=== PATIENT | male | born 1985 | race Caucasian/White ===

== ENCOUNTER 2024-11-18 23:41 | Inpatient (IN) | payer MEDICAID, SELFPAY ==
[2024-11-18 23:48] VITALS: BP 135/74; PULSE 76; RESP 19; TEMP 36.9; O2SAT 96; BMI 20.2
--- NOTE | 2024-11-19 00:32 | ECG_ITS ---
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 Measurements Intervals [place] Rate: 77 P: 79 NV: 189 QRS: 59 QRSD: 116 T: 75 QT: 423 QTc: 479 Interpretive Statements SINUS RHYTHM WITH SINUS ARRHYTHMIA POSSIBLE LEFT ATRIAL ENLARGEMENT [-0.1mV P-WAVE IN V1/V2] INCOMPLETE RIGHT BUNDLE BRANCH BLOCK [90+ ms QRS DURATION, TERMINAL R IN V1/V2, 40+ ms S IN I/aVL/V4/V5/V6] MODERATE ST DEPRESSION [0.05+ mV ST DEPRESSION] No previous ECG available for comparison Electronically Signed On 11-19-2024 17:45:06 CDT by David Peoples M.D. [email or web address] [id number]
[2024-11-19 00:36] LABS: Hematocrit 43.0 % (37-53); Hemoglobin 14.20 g/dL (11.27-16.99); Mean Corpuscular HGB Conc 33.0 g/dL (30-55); Mean Corpuscular Hemoglobin 31.1 pg (27-33); Mean Corpuscular Volume 94.3 fl (82-101); Nucleated Red Blood Cells % 0 %; Platelet Count 220 10^3/cmm (157-399); Red Blood Count 4.56 10^6/uL (3.85-5.65); White Blood Count 7.96 10^3/uL (3.29-11.43)
[2024-11-19 00:45] LABS: Glucose Urine UA Negative (Normal); Nitrate Urine Negative (Negative)
[2024-11-19 00:50] LABS: Add Urine Microscopic? YES
[2024-11-19 00:52] LABS: PCP Screen Urine Negative (Negative); Specific Gravity, Urine 1.031 (1.005-1.030)
--- NOTE | 2024-11-19 00:59 | ED.C_ITS ---
Documented by User: ABRIL Dorado 11/19/24 01:08 HPI - Psych 2 General: Chief Complaint: Psychiatric Symptoms Stated Complaint: MHE Time Seen by Provider: 11/18/24 23:51 History of Present Illness: 39-year-old gentleman with intellectual disability, previously guardianship with his mother that has dementia in [place], moved here in July and his brother now has power of bankruptcy attorney/conservatorship over him that he resides with, presented to the emergency room due to watching child porn. Brother has 4 small children in the home, and apparently he was watching excessive child porn. Police brought patient to the ED and believes that he need to be placed on 96- hour hold due to his issues. Patient admits to depression, denies SI, denies HI. Patient admits that he is watching child porn he does not know why. He wants help to stop. Associated symptoms: Reports depression; Deny auditory hallucinations, homicidal ideation or suicidal ideation Review of Systems 2 General: Reports: 10 or more systems reviewed and unremarkable except in HPI and below Const: Denies: fever(s) or chills Eyes: Denies: change in vision or blurry vision ENMT: Denies: throat pain Card: Denies: chest pain or palpitations Resp: Denies: dyspnea or productive cough GI: Denies: abdominal pain, nausea or vomiting : Denies: flank pain or difficulty urinating Musc: Denies: neck pain or back pain Skin/Breast: Denies: rash or pruritus Neuro: Denies: headache(s) or numbness in extremities Psych: Reports: anxiety, depression and other (Watching child born); Denies: mood swings, panic attacks, sleeping less, sleeping more, loss of interest, paranoia, difficulty concentrating, auditory hallucinations, suicidal ideation or homicidal ideation Physical Exam 2 Const: COMMON NORMALS: patient oriented x3 HENMT: COMMON NORMALS: normocephalic and atraumatic HEAD & SCALP: n ormocephalic and atraumatic Neck/C-Spine: COMMON NORMALS: full ROM and no lymphadenopathy Lymph: LYMPHATIC: no lymphadenopathy noted Chest: COMMONS NORMALS: normal inspection of the chest and normal palpation of entire chest wall Resp: COMMON NORMALS: normal respiratory effort and No retractions GI: COMMON NORMALS: Normal to inspection, nondistended, normoactive bowel sounds present, Soft to palpation and non-tender PALPATION: Yes Soft to palpation : COMMON NORMALS: Yes no CVA tenderness BLADDER/KIDNEY EXAM: Yes no CVA tenderness Back/Pelvis: COMMON NORMALS: no CVA tenderness Extremity: COMMON NORMALS: normal to inspection, full ROM and capillary refill normal Neuro: COMMON NORMALS: patient oriented x3 and CN's II-XII intact bilaterally Psych: COMMON NORMALS: cooperative, normal affect, speech normal, denies hallucinations, denies homicidal ideation and denies suicidal ideation A PPEARANCE: Yes grossly normal ATTITUDE: Yes calm ACTIVITY/MOTOR BEHAVIOR: Yes appropriate eye contact SPEECH: Yes normal speech MOOD & AFFECT: Yes elevated mood THOUGHT PROCESS: Loose association thought process present T HOUGHT CONTENT: No Suicidality present, No Homicidality present and Yes Phobia(s) present (Child born) ATTENTION/CONCENTRATION: Yes attention grossly intact INSIGHT: Good insight present (Psych) JUDGEMENT: Good judgement present (Psych) Course 2 Vital Signs: Vital signs: Vital Signs Temperature 98.4 F 11/18/24 23:48 Pulse Rate 76 11/18/24 23:48 Respiratory Rate 19 H 11/18/24 23:48 Blood Pressure 135/74 11/18/24 23:48 Pulse Oximetry 96 11/18/24 23:48 Oxygen Delivery Me thod Room Air 11/18/24 23:48 MDM - Psych Medical Decision Making Patient is a 39-year-old male that moved here in July and his brother has power of bankruptcy attorney. He has chronic intellectual disabilities and requires care. He is residing with his brother and his nieces and nephews that are small children. He is also watching child porn. Brother called police and police brought him to the ER for admission. Patient states he needs help for his depression and wants to stop watching child porn, however denies suicide homicide ideations. He does not appear to have acute psychosis. 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 Will obtain workup and further discuss with psychiatric care. Lab Data 11/19/24 00:01 11/19/24 00:01 Laboratory Results WBC 7.96 10^3/uL (3.29-11.43) 11/19/24 00:01 RBC 4.56 10^6/uL (3.85-5.65) 11/19/24 00:01 Hgb 14.20 g/dL (11.27-16.99) 11/19/24 00:01 Hct 43.0 % (37-53) 11/19/24 00:01 MCV 94.3 fl (82-101) 11/19/24 00:01 MCH 31.1 pg (27-33) 11/19/24 00:01 MCHC 33.0 g/dL (30-55) 11/19/24 00:01 RDW 12.2 % (12.1-15.1) 11/19/24 00:01 Plt Count 220 10^3/cmm (157-399) 11/19/24 00:01 MPV 10.9 fL (7.4-10.4) H 11/19/24 00:01 Neut % (Auto) 81.9 % 11/19/24 00:01 Lymph % (Auto) 11.3 % 11/19/24 00:01 [place] % (Auto) 5.7 % 11/19/24 00:01 Eos % (Auto) 0.3 % 11/19/24 00:01 Baso % (Auto) 0.5 % 11/19/24 00:01 Neut # (Auto) 6.53 10^3/uL (1.8-7.7) 11/19/24 00:01 Lymph # (Auto) 0.9 10^3/uL (0.8-4.8) 11/19/24 00:01 [place] # (Auto) 0.5 10^3/uL (0.2-0.9) 11/19/24 00:01 Eos # (Auto) 0.0 10^3/uL (0.0-0.8) 11/19/24 00:01 Baso # (Auto) 0.0 10^3/uL (0.0-0.1) 11/19/24 00:01 Nucleated RBC % (auto) 0 % 11/19/24 00:01 Nucleated RBCs # 0.0 /100WBC 11/19/24 00:01 Sodium 139 mmol/L (136-145) 11/19/24 00:01 Potassium 3.6 mmol/L (3.5-5.1) 11/19/24 00:01 Chloride 99 mmol/L (98-107) 11/19/24 00:01 Carbon Dioxide 26 mmol/L (22-29) 11/19/24 00:01 Anion Gap 17.6 (5-19) 11/19/24 00: BUN 22 mg/dL (6-20) H 11/19/24 00:01 Creatinine 0.8 mg/dL (0.7-1.2) 11/19/24 00: GFR Calculation 106.5 mL/min (90-130) 11/19/24 00: Glucose 121 mg/dL (65-115) H 11/19/24 00: Calculated Osmolality 293 mOsm/kg (285-295) 11/19/24 00: Calcium 9.6 mg/dL (8.5-10.5) 11/19/24 00: Total Bilirubin 0.4 mg/dL (0.15-1.2) 11/19/24 00: AST 31 U/L (0-40) 11/19/24 00: ALT 19 U/L (0-41) 11/19/24 00: Alkaline Phosphatase 86 U/L (40-130) 11/19/24 00: Total Protein 8.2 g/dL (6.6-8.7) 11/19/24 00: Albumin 4.9 g/dL (3.5-5.2) 11/19/24 00: Globulin 3.3 g/dL (1.3-4.6) 11/19/24 00: TSH 1.72 uIU/mL (0.27-4.20) 11/19/24 00: Urine Color Yellow (Yellow) 11/19/24 00: Urine Appearance Clear (CLEAR) 11/19/24 00: Urine pH 6.0 (5-7) 11/19/24 00: Ur Specific [place] 1.031 (1.005-1.030) H 11/19/24 00: Urine Protein Trace (Negative) A 11/19/24 00: Urine Glucose (UA) Negative (Normal) 11/19/24 00: Urine Ketones 1+ (Negative) H 11/19/24 00: Urine Blood Negative (Negative) 11/19/24 00: Urine Nitrate Negative (Negative) 11/19/24 00: Urine Bilirubin Negative (Negative) 11/19/24 00:01 Urine Urobilinogen 1.0 mg/dL (Negative) 11/19/24 00:01 Ur Leukocyte Esterase Negative (Negative) 11/19/24 00:01 Urine RBC 0-2 /hpf (0-2) 11/19/24 00:01 Urine WBC 0-5 /hpf (0-5) 11/19/24 00:01 Ur Squamous Epith Cells 0-5 /hpf (0-5) 11/19/24 00:01 Amorphous Sediment Not Reportable 11/19/24 00:01 Urine Bacteria None seen /hpf (NONE) 11/19/24 00:01 Hyaline Casts 1.21 /lpf 11/19/24 00:01 Salicylates 0.5 mg/dL (3-10) L 11/19/24 00:01 Urine Opiates Screen Negative ng/mL (Negative) 11/19/24 00:01 Acetaminophen < 5.0 ug/mL (10-30) L 11/19/24 00:01 Ur Barbiturates Screen Negative ng/mL (Negative) 11/19/24 00:01 Ur Phencyclidine Scrn Negative ng/mL (Negative) 11/19/24 00:01 Ur Amphetamines Screen Negative ng/mL (Negative) 11/19/24 00:01 U Benzodiazepines Scrn Negative ng/mL (Negative) 11/19/24 00:01 Urine Cocaine Screen Negative ng/mL (Negative) 11/19/24 00:01 U Marijuana (THC) Screen Negative ng/mL (Negative) 11/19/24 00:01 Ethyl Alcohol < 10 mg/dL (0-10) 11/19/24 00:01 No radiology studies performed this visit Discharge Plan Discharge Patient Disposition: Admitted As Inpatient Clinical Impression: Inappropriate sexual behavior, Pedophilia Condition: Stable Discharge Diet: Usual diet Coding Level of Care Code ED Social Media Marketing Manager for Chg Fwd Documented by User: Laith Otto MD 11/19/24 01:50 HPI - Psych 2 General: Chief Complaint: Psychiatric Symptoms Stated Complaint: MHE Time Seen by Provider: 11/18/24 23:51 Course 2 Vital Signs: Vital signs: Vital Signs Temperature 98.4 F 11/18/24 23:48 Pulse Rate 76 11/18/24 23:48 Respiratory Rate 19 H 11/18/24 23:48 Blood Pressure 135/74 11/18/24 23:48 Pulse Oximetry 96 11/18/24 23:48 Oxygen Delivery Me thod Room Air 11/18/24 23:48 MDM - Psych Medical Decision Making Patient is a 39-year-old male that moved here in July and his brother has power of bankruptcy attorney. He has chronic intellectual disabilities and requires care. He is residing with his brother and his nieces and nephews that are small children. He is also watching child porn. Brother called police and police brought him to the ER for admission. Patient states he needs help for his depression and wants to stop watching child porn, however denies suicide homicide ideations. He does not appear to have acute psychosis. 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 Will obtain workup and further discuss with psychiatric care. 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 HPI: Mr. Edouard is a 39yo male with some degree of developmental delay and type 1 diabetes who was brought to the ED by law enforcement after his brother called the photoresist contact printer due to discovering inappropriate child-related content in the patient's internet search history. The patient admits to looking up inappropriate content involving children and expresses a desire to get that out of me. He reports living with his brother and [id number] who have children ages 13 and 11. The patient denies any physical contact with these children, stating I keep my hands to myself and off their bodies. He moved from [facility] to live with his brother in July after his mother developed fast dementia and could no longer care for him. The patient requires assistance with managing his insulin-dependent diabetes. The patient denies any current suicidal or homicidal ideation. He has never been admitted to a psychiatric hospital before, and this is his first psychiatric evaluation. He denies ever seeing a therapist for his pedophilic thoughts. The patient reports that his inappropriate viewing behavior began years and years ago in [facility]. He expresses a desire to address these thoughts through Muslim music and believes he can work through this and get this out of my head. A photoresist contact printer's deputy provided an affidavit stating the patient admitted to being attracted to both young girls and boys and wishes to get treatment. ROS: Constitutional: Denies suicidal or homicidal ideation. Psychiatric: Reports attention deficit hyperactivity disorder (ADHD). Denies previous psychiatric hospitalizations. Exhibits flat affect and possible developmental delay. MEDICATIONS AND ALLERGIES: Meds: NovoLog (fast-acting insulin), Tresiba (long-acting insulin) Allergies: No known allergies PAST HISTORICAL DATA: PMH: Type 1 diabetes (insulin-dependent), Attention Deficit Hyperactivity Disorder (ADHD) PSH: None reported Social: Previously lived in [facility] with his mother who has dementia. Recently moved to live with his brother and [id number] in July. Requires assistance with diabetes management. 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 Additional considerations include type 1 diabetes, ADHD, and possible autism spectrum disorder or schizoaffective disorder. Based on this initial impression, I will order laboratory studies to evaluate the patient's current metabolic status given his diabetes, consult psychiatry for evaluation and recommendations regarding the patient's pedophilic thoughts and possible developmental delay, and consider a 96-hour psychiatric hold based on the photoresist contact printer's recommendation and potential risk to minors. TEST INTERPRETATIONS: Labs: Unremarkable (specific values not provided in mechanical engineering technologist) CONSIDERED BUT NOT PERFORMED: Discharge to home CONSIDERED but NOT DONE due to patient's disclosure of pedophilic thoughts while living in a home with minor children, creating a potentially unsafe situation for both the patient and the children. 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 The patient requires psychiatric evaluation and treatment for his pedophilic thoughts and behaviors. The clinical picture is not currently suggestive of acute suicidal or homicidal ideation, psychosis, or diabetic emergency. Although other conditions were also considered, they were deemed unlikely based on the clinical information available. CLINICAL DISPOSITION: The patient's current condition is stable in my estimation and the most appropriate and indicated disposition at this time is admission to the inpatient psychiatric unit under Dr. Scott' care. The patient requires inpatient psychiatric admission due to his disclosure of pedophilic thoughts and behaviors while living in a home with minor children. He has expressed a desire for treatment but has never received professional help for these issues. Given the potential risk to minors and the patient's developmental delay affecting his ability to manage these impulses independently, inpatient evaluation and treatment initiation is warranted. The patient also requires monitoring of his insulin-dependent diabetes during psychiatric treatment. RISK STRATIFICATION AND CLINICAL DECISION RULES APPLIED: No formal clinical decision rules were applied in this case. Risk assessment was based on the patient's disclosure of pedophilic thoughts while living with minor children, his developmental delay affecting judgment, and the recommendation from law enforcement for a 96-hour psychiatric hold. CASE SUMMARY: Mr. Edouard is a male with type 1 diabetes and possible developmental delay who was brought to the ED by law enforcement after his brother discovered inappropriate child-related content in his internet search history. The patient admits to having pedophilic thoughts and desires treatment. He currently lives with his brother's family, which includes children ages 11 and 13. The patient denies any physical contact with these children but acknowledges his inappropriate thoughts. He has never received psychiatric treatment for these issues previously. Laboratory studies were unremarkable. After psychiatric consultation with Dr. Scott, the decision was made to admit the patient to the inpatient psychiatric unit for comprehensive evaluation and treatment initiation. This decision was based on the patient's disclosure of pedophilic thoughts while living with minor children, his developmental delay affecting judgment, and the recommendation from law enforcement for a 96-hour psychiatric hold. Lab Data I reviewed the patient's lab results. 11/19/24 00:01 11/19/24 00:01 Laboratory Results WBC 7.96 10^3/uL (3.29-11.43) 11/19/24 00:01 RBC 4.56 10^6/uL (3.85-5.65) 11/19/24 00:01 Hgb 14.20 g/dL (11.27-16.99) 11/19/24 00:01 Hct 43.0 % (37-53) 11/19/24 00:01 MCV 94.3 fl (82-101) 11/19/24 00:01 MCH 31.1 pg (27-33) 11/19/24 00:01 MCHC 33.0 g/dL (30-55) 11/19/24 00:01 RDW 12.2 % (12.1-15.1) 11/19/24 00:01 Plt Count 220 10^3/cmm (157-399) 11/19/24 00:01 MPV 10.9 fL (7.4-10.4) H 11/19/24 00:01 Neut % (Auto) 81.9 % 11/19/24 00:01 Lymph % (Auto) 11.3 % 11/19/24 00:01 [place] % (Auto) 5.7 % 11/19/24 00:01 Eos % (Auto) 0.3 % 11/19/24 00:01 Baso % (Auto) 0.5 % 11/19/24 00:01 Neut # (Auto) 6.53 10^3/uL (1.8-7.7) 11/19/24 00:01 Lymph # (Auto) 0.9 10^3/uL (0.8-4.8) 11/19/24 00:01 [place] # (Auto) 0.5 10^3/uL (0.2-0.9) 11/19/24 00:01 Eos # (Auto) 0.0 10^3/uL (0.0-0.8) 11/19/24 00:01 Baso # (Auto) 0.0 10^3/uL (0.0-0.1) 11/19/24 00:01 Nucleated RBC % (auto) 0 % 11/19/24 00:01 Nucleated RBCs # 0.0 /100WBC 11/19/24 00:01 Sodium 139 mmol/L (136-145) 11/19/24 00:01 Potassium 3.6 mmol/L (3.5-5.1) 11/19/24 00:01 Chloride 99 mmol/L (98-107) 11/19/24 00:01 Carbon Dioxide 26 mmol/L (22-29) 11/19/24 00:01 Anion Gap 17.6 (5-19) 11/19/24 00:01 BUN 22 mg/dL (6-20) H 11/19/24 00:01 Creatinine 0.8 mg/dL (0.7-1.2) 11/19/24 00:01 GFR Calculation 106.5 mL/min (90-130) 11/19/24 00: Glucose 121 mg/dL (65-115) H 11/19/24 00:01 Calculated Osmolality 293 mOsm/kg (285-295) 11/19/24 00: Calcium 9.6 mg/dL (8.5-10.5) 11/19/24 00: Total Bilirubin 0.4 mg/dL (0.15-1.2) 11/19/24 00: AST 31 U/L (0-40) 11/19/24 00: ALT 19 U/L (0-41) 11/19/24 00: Alkaline Phosphatase 86 U/L (40-130) 11/19/24 00: Total Protein 8.2 g/dL (6.6-8.7) 11/19/24 00: Albumin 4.9 g/dL (3.5-5.2) 11/19/24 00: Globulin 3.3 g/dL (1.3-4.6) 11/19/24 00: TSH 1.72 uIU/mL (0.27-4.20) 11/19/24 00: Urine Color Yellow (Yellow) 11/19/24 00: Urine Appearance Clear (CLEAR) 11/19/24 00: Urine pH 6.0 (5-7) 11/19/24 00: Ur Specific [place] 1.031 (1.005-1.030) H 11/19/24 00: Urine Protein Trace (Negative) A 11/19/24 00: Urine Glucose (UA) Negative (Normal) 11/19/24 00: Urine Ketones 1+ (Negative) H 11/19/24 00: Urine Blood Negative (Negative) 11/19/24 00: Urine Nitrate Negative (Negative) 11/19/24 00: Urine Bilirubin Negative (Negative) 11/19/24 00: Urine Urobilinogen 1.0 mg/dL (Negative) 11/19/24 00: Ur Leukocyte Esterase Negative (Negative) 11/19/24 00: Urine RBC 0-2 /hpf (0-2) 11/19/24 00: Urine WBC 0-5 /hpf (0-5) 11/19/24 00: Ur Squamous Epith Cells 0-5 /hpf (0-5) 11/19/24 00:01 Amorphous Sediment Not Reportable 11/19/24 00:01 Urine Bacteria None seen /hpf (NONE) 11/19/24 00:01 Hyaline Casts 1.21 /lpf 11/19/24 00:01 Salicylates 0.5 mg/dL (3-10) L 11/19/24 00:01 Urine Opiates Screen Negative ng/mL (Negative) 11/19/24 00:01 Acetaminophen < 5.0 ug/mL (10-30) L 11/19/24 00:01 Ur Barbiturates Screen Negative ng/mL (Negative) 11/19/24 00:01 Ur Phencyclidine Scrn Negative ng/mL (Negative) 11/19/24 00:01 Ur Amphetamines Screen Negative ng/mL (Negative) 11/19/24 00:01 U Benzodiazepines Scrn Negative ng/mL (Negative) 11/19/24 00:01 Urine Cocaine Screen Negative ng/mL (Negative) 11/19/24 00:01 U Marijuana (THC) Screen Negative ng/mL (Negative) 11/19/24 00:01 Ethyl Alcohol < 10 mg/dL (0-10) 11/19/24 00:01 No radiology studies performed this visit Discharge Plan Discharge Patient Disposition: Admitted As Inpatient Clinical Impression: Inappropriate sexual behavior, Pedophilia Condition: Stable Discharge Diet: Usual diet Coding Level of Care Code ED Social Media Marketing Manager for Adi Trammell
[2024-11-19 01:00] LABS: Alanine Aminotransferase 19 U/L (0-41); Albumin Level 4.9 g/dL (3.5-5.2); Alkaline Phosphatase 86 U/L (40-130); Anion Gap 17.6 (5-19); Aspartate Amino Transferase 31 U/L (0-40); Blood Urea Nitrogen 22 mg/dL (6-20); Calcium 9.6 mg/dL (8.5-10.5); Carbon Dioxide 26 mmol/L (22-29); Chloride 99 mmol/L (98-107); Creatinine Clr Calc Pharmacy 126.4897; Globulin 3.3 g/dL (1.3-4.6); Glucose 121 mg/dL (65-115); Osmolality Calculated 293 mOsm/kg (285-295); Potassium 3.6 mmol/L (3.5-5.1); Salicylate 0.5 mg/dL (3-10); Sodium 139 mmol/L (136-145); Thyroid Stimulating Hormone 1.72 uIU/mL (0.27-4.20); Total Protein 8.2 g/dL (6.6-8.7)
[2024-11-19 01:05] LABS: Acetaminophen < 5.0 ug/mL (10-30); Alcohol Level < 10 mg/dL (0-10)
[2024-11-19 02:45] VITALS: BP 129/78; PULSE 71; RESP 20; TEMP 36.6; O2SAT 100
[2024-11-19 06:00] VITALS: BP 111/66; PULSE 74; RESP 16; TEMP 36.6; O2SAT 97
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
--- NOTE | 2024-11-19 07:42 | PC.NURSE ---
Pt has a morning bs of 254. I spoke with his guardian and his , they state that pt takes 18u of Triseba every morning and 1u of Novolog for every 50 points over a bs of [address]. [address] Scott and let him know that our facility doesn't carry Triseba and that no insulin sliding scale orders are in place right now. Dr. Scott approved for the pt to have 3u of novolog now. I have put the order in.
[2024-11-19] MEDS: insulin glargine 100 units/1 mL 10 UNIT SUBCUT (12:25)
[2024-11-19 12:52] LABS: Estmated Average Glucose 194; Hemoglobin A1C 8.4 % (4.0-6.0)
--- NOTE | 2024-11-19 13:05 | P.CONIM_ITS ---
Providers/Reason For Consult 2 Consulting Physician/Specialty*: psychiatry Reason for Consult*: hyperglycemia Attending Physician: Yomi Scott MD Primary Care Provider: Joselito Alba DO History of Present Illness History of Present Illness Slick Edouard is a 39 year old male with a past medical history of type 1 diabetes mellitus, who was admitted to neuropsychiatric unit, hospitalist team was consulted due to blood sugar over 500. Currently patient is alert oriented x 3, following all commands no polyuria, no polydipsia, no polyphagia, he tells me that he takes Tresiba 18 units in the morning, with a NovoLog sliding scale based upon the amount of carbs he has continued, he is originally from [place], he moved here out to [place] as his engineer byproduct has developed dementia, and she is currently admitted [facility], so patient's family brother is helping take care of him, denies any chest pain, palpitations, shortness of breath, denies a history of diabetic ketoacidosis Medications/Allergies Allergies Allergy/AdvReac Type Severity Reaction Status Date / Time No Known Allergies Allergy Verified 11/19/24 02:03 Current Medications Generic Name Dose Route Start Last Admin Trade Name Freq PRN Reason Stop Dose Admin Insulin Glargine 10 unit 11/19/24 12:15 11/19/24 12:25 Insulin Glargine 100 Units/1 Ml SUBCUT 10 unit Q24H TAVO Administration Insulin Human Lispro 0 unit 11/19/24 12:30 11/19/24 12:25 Insulin Lispro 100 Unit/1 Ml SUBCUT 14 unit WM&BEDTIME TAVO Administration Protocol PFSH Acute 2 PFSH: Medical History (Updated 11/19/24 @ 13:08 by Rafa Escobedo MD) Type 1 diabetes mellitus Vitals/I&O/Wt Last Vital Signs Temp 97.9 F 11/19/24 06:00 Pulse 74 11/19/24 06:00 Resp 16 11/19/24 06:00 BP 111/66 11/19/24 06:00 Pulse Ox 97 11/19/24 06:00 O2 Del Method Room Air 11/19/24 06:00 Weight last 48 hrs Weight 67.585 kg Physical Exam 2 Const: COMMON NORMALS: no acute distress and patient oriented x3 Resp: COMMON NORMALS: normal respiratory effort, No retractions, No use of accessory muscles and clear to auscultation bilaterally AUSCULTATION: clear to auscultation bilaterally Cardio: COMMON NORMALS: regular rate, regular rhythm, S1 normal heart sound present and S2 normal heart sound present RATE: regular rate RHYTHM: r egular rhythm HEART SOUNDS: S1 normal heart sound present and S2 normal heart sound present GI: COMMON NORMALS: Normal to inspection, nondistended, normoactive bowel sounds present and non-tender Extremity: COMMON NORMALS: no calf tenderness and no pedal edema NARRATIVE EXTREMITY EXAM: No diabetic ulcers or wounds seen Neuro: COMMON NORMALS: patient oriented x3 Psych: COMMON NORMALS: mental status grossly normal Data 11/19/24 00:01 11/19/24 00:01 A&P Assessment and plan (1) Type 1 diabetes mellitus: (2) Hyperglycemia: Plan Type 1 diabetes mellitus - With hyperglycemia blood sugar over 500 - Will check serum ketones, recheck BMP, will consider ABG - If evidence of diabetic ketoacidosis will moved to ICU - He is already received 10 units of Lantus, and 14 units off sliding scale recheck blood sugar in 1 hour - For now continue Lantus 10 units subcu a.m. - Moderate dose sliding scale - No history of diabetic ulcers OR WOUNDS PDMP PDMP Reviewed: Not Reviewed Consult Attestations 2 Medical Necessity Statement: Patient requires hospitalization for hyperglycemia and type I diabetic Diagnoses Type 1 diabetes mellitus E10.9 Hyperglycemia R73.9
[2024-11-19 13:59] LABS: Alanine Aminotransferase 17 U/L (0-41); Albumin Level 4.2 g/dL (3.5-5.2); Alkaline Phosphatase 85 U/L (40-130); Anion Gap 19.4 (5-19); Aspartate Amino Transferase 26 U/L (0-40); Blood Urea Nitrogen 21 mg/dL (6-20); Calcium 9.0 mg/dL (8.5-10.5); Carbon Dioxide 21 mmol/L (22-29); Chloride 96 mmol/L (98-107); Creatinine Clr Calc Pharmacy 126.4897; Globulin 2.7 g/dL (1.3-4.6); Glucose 490 mg/dL (65-115); Osmolality Calculated 299 mOsm/kg (285-295); Potassium 4.4 mmol/L (3.5-5.1); Sodium 132 mmol/L (136-145); Total Protein 6.9 g/dL (6.6-8.7)
[2024-11-19 14:00] VITALS: BP 113/59; PULSE 92; RESP 18; TEMP 36.9; O2SAT 97
[2024-11-19 14:01] LABS: Ketone (Acetest) Serum Negative (Negative)
--- NOTE | 2024-11-19 14:15 | PC.NURSE ---
Dr. Escobedo wanted a BS recheck at approx 1345 and call him. Repeat check was 410, he ordered 10u of Lispro and recheck in one hour and call him.
--- NOTE | 2024-11-19 15:05 | PC.NURSE ---
Called Dr. Escobedo with bs recheck of 337, he stated to have that rechecked in one hour and call him with the new results.
--- NOTE | 2024-11-19 16:54 | PC.NURSE ---
Called Dr. Escobedo and let him know Aniket Edouard had a blood sugar of 212. Dr. Escobedo said that was good.
[2024-11-19 19:45] VITALS: BP 108/65; PULSE 66; RESP 16; TEMP 36.5; O2SAT 96
[2024-11-20 06:00] VITALS: BP 99/58; PULSE 80; RESP 18; O2SAT 99
[2024-11-20] MEDS: insulin glargine 100 units/1 mL 10 UNIT SUBCUT (06:09)
[2024-11-20 14:00] VITALS: BP 104/63; PULSE 70; RESP 16; TEMP 36.6; O2SAT 98
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
[2024-11-20 20:10] VITALS: BP 116/75; PULSE 76; RESP 21; TEMP 36.3; O2SAT 97
[2024-11-21 06:00] VITALS: BP 98/55; PULSE 68; RESP 18; TEMP 36.8; O2SAT 98
[2024-11-21] MEDS: insulin glargine 100 units/1 mL 15 UNIT SUBCUT (07:24)
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
[2024-11-21 14:00] VITALS: BP 122/72; PULSE 75; RESP 16; TEMP 36.8; O2SAT 98
[2024-11-21 19:44] VITALS: BP 106/55; PULSE 75; RESP 16; TEMP 36.7; O2SAT 96
--- NOTE | 2024-11-21 23:18 | PC.NURSE ---
Patient has mostly isolated in his room. He has poor eye contact and minimal communication. He primarily answers yes and no question. He denies SI/HI/ AVH and intrusive thoughts. He denies pain or needs. He endorses anxiety rated 3/10 and denies depression. Patients blood glucose this evening was 211. He received 8 units Lispro in right upper arm.
[2024-11-22 06:00] VITALS: BP 101/61; PULSE 68; RESP 16; TEMP 36.6; O2SAT 98
[2024-11-22] MEDS: insulin glargine 100 units/1 mL 20 UNIT SUBCUT (09:16)
[2024-11-22 14:00] VITALS: BP 99/60; PULSE 87; RESP 16; TEMP 36.6; O2SAT 98
--- NOTE | 2024-11-22 15:21 | PC.NURSE ---
Verbal order received from Dr. Scott to give Abilify 5mg PO now and QD.
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
[2024-11-22 20:44] VITALS: BP 105/63; PULSE 97; RESP 18; TEMP 36.6; O2SAT 97
[2024-11-23 06:00] VITALS: BP 108/71; PULSE 79; RESP 18; TEMP 36.7; O2SAT 95
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
[2024-11-23] MEDS: insulin glargine 100 units/1 mL 20 UNIT SUBCUT (07:56)
[2024-11-23 08:18] VITALS: BP 103/58; PULSE 69; RESP 16; TEMP 36.5; O2SAT 100
[2024-11-23 13:38] VITALS: BP 99/59; PULSE 80; RESP 15; O2SAT 98
[2024-11-23 22:00] VITALS: BP 121/74; PULSE 87; RESP 18; TEMP 36.6; O2SAT 96
[2024-11-24 06:00] VITALS: BP 105/59; PULSE 74; RESP 17; TEMP 36.6; O2SAT 98
[2024-11-24] MEDS: insulin glargine 100 units/1 mL 20 UNIT SUBCUT (08:09)
[2024-11-24 14:00] VITALS: BP 99/65; PULSE 94; RESP 16; TEMP 36.6; O2SAT 97
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
[2024-11-24 20:00] VITALS: BP 103/69; PULSE 94; RESP 19; TEMP 36.6; O2SAT 98
[2024-11-25 06:00] VITALS: BP 115/69; PULSE 55; RESP 16; TEMP 36.7; O2SAT 99
--- NOTE | 2024-11-25 07:32 | PC.NURSE ---
Pt blood sugar 275
[2024-11-25] MEDS: insulin glargine 100 units/1 mL 20 UNIT SUBCUT (08:05)
--- NOTE | 2024-11-25 10:36 | PC.NURSE ---
Pt blood glucose reported as 275, Accucheck did not flow to charting. Sliding scale was dosed off of the blood glucose 275.
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
[2024-11-25 14:00] VITALS: BP 102/68; PULSE 91; RESP 17; O2SAT 98
[2024-11-25 19:21] VITALS: BP 102/61; PULSE 84; RESP 20; TEMP 36.6; O2SAT 96
[2024-11-26 06:00] VITALS: BP 104/65; PULSE 86; RESP 18; O2SAT 97
[2024-11-26] MEDS: insulin glargine 100 units/1 mL 20 UNIT SUBCUT (08:09)
[2024-11-26 13:55] VITALS: BP 101/52; PULSE 100; RESP 19; TEMP 36; O2SAT 97
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
[2024-11-26 19:17] VITALS: BP 121/68; PULSE 108; RESP 18; TEMP 36.9; O2SAT 96
[2024-11-27 06:00] VITALS: BP 106/69; PULSE 79; RESP 18; O2SAT 98
[2024-11-27] MEDS: insulin glargine 100 units/1 mL 25 UNIT SUBCUT (09:57)
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
[2024-11-27 14:00] VITALS: BP 108/66; PULSE 94; RESP 16; TEMP 36.7; O2SAT 96
[2024-11-27 20:06] VITALS: BP 109/67; PULSE 86; RESP 18; TEMP 36.6; O2SAT 98
[2024-11-28 06:00] VITALS: BP 109/63; PULSE 80; RESP 18; O2SAT 98
[2024-11-28] MEDS: insulin glargine 100 units/1 mL 30 UNIT SUBCUT (07:33)
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
[2024-11-28 13:20] VITALS: BP 107/66; PULSE 88; RESP 16; TEMP 37.1; O2SAT 97
[2024-11-28 20:19] VITALS: BP 141/72; PULSE 67; RESP 18; TEMP 36.7; O2SAT 97
[2024-11-28 20:21] VITALS: BP 109/72; PULSE 76; RESP 17; TEMP 36.6; O2SAT 97
[2024-11-28 20:23] VITALS: BP 109/72; PULSE 76; RESP 17; TEMP 36.6; O2SAT 97
[2024-11-29 06:00] VITALS: BP 97/61; PULSE 91; RESP 18; TEMP 36.7; O2SAT 97
[2024-11-29] MEDS: insulin glargine 100 units/1 mL 30 UNIT SUBCUT (08:09)
[2024-11-29 14:00] VITALS: BP 102/70; PULSE 105; RESP 17; TEMP 36.7; O2SAT 95
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
[2024-11-29 20:14] VITALS: BP 105/69; PULSE 85; RESP 16; TEMP 36.7; O2SAT 95
--- NOTE | 2024-11-30 04:43 | PC.NURSE ---
11/29/25 2130 Orders received from acquisition cost estimator hospitalist Dr. Oliveira to: 1. d/c high dose sliding scale humalog 2. New order for low dose sliding scale humalog TID AC only, no longer any @ HS 3. Continue 0800 Lantus 10 unit dose 4. Humalog 2 unit now, one time order r/t brittle diabetic concerns.
[2024-11-30 06:00] VITALS: BP 104/69; PULSE 97; RESP 15; TEMP 36.7; O2SAT 98
[2024-11-30] MEDS: insulin glargine 100 units/1 mL 30 UNIT SUBCUT (08:34)
[2024-11-30 14:00] VITALS: BP 110/74; PULSE 74; RESP 16; TEMP 37; O2SAT 98
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
[2024-11-30 20:54] VITALS: BP 123/81; PULSE 88; RESP 18; TEMP 37.1; O2SAT 94
[2024-12-01 06:00] VITALS: BP 100/67; PULSE 96; RESP 18; TEMP 36.7; O2SAT 96; BMI 19.4
[2024-12-01] MEDS: insulin glargine 100 units/1 mL 30 UNIT SUBCUT (08:24)
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
[2024-12-01 14:00] VITALS: BP 120/67; PULSE 91; RESP 16; TEMP 36.8; O2SAT 97
[2024-12-01 20:21] VITALS: BP 112/73; PULSE 98; RESP 19; TEMP 36.7; O2SAT 93
[2024-12-02 06:00] VITALS: BP 107/63; PULSE 78; RESP 17; TEMP 36.6; O2SAT 96
[2024-12-02] MEDS: insulin glargine 100 units/1 mL 30 UNIT SUBCUT (08:41)
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
[2024-12-02 14:00] VITALS: BP 97/59; PULSE 81; RESP 16; TEMP 36.8; O2SAT 96
[2024-12-02 20:17] VITALS: BP 112/73; PULSE 97; RESP 16; TEMP 36.6; O2SAT 96
[2024-12-02 21:19] VITALS: BP 112/73; PULSE 97; RESP 16; TEMP 36.6; O2SAT 96
[2024-12-03 06:00] VITALS: BP 93/63; PULSE 75; RESP 15; TEMP 36.8; O2SAT 93
[2024-12-03] MEDS: insulin glargine 100 units/1 mL 30 UNIT SUBCUT (08:10)
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
[2024-12-03 14:00] VITALS: BP 105/68; PULSE 105; RESP 16; TEMP 36.6; O2SAT 94
[2024-12-03 19:39] VITALS: BP 111/73; PULSE 97; RESP 18; TEMP 36.4; O2SAT 99
[2024-12-04 06:00] VITALS: BP 105/63; PULSE 78; RESP 16; O2SAT 97
[2024-12-04] MEDS: insulin glargine 100 units/1 mL 30 UNIT SUBCUT (08:55)
[2024-12-04 14:00] VITALS: BP 110/74; PULSE 78; RESP 16; TEMP 36.9; O2SAT 100
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
[2024-12-04 19:38] VITALS: BP 103/63; PULSE 95; RESP 16; TEMP 36.9; O2SAT 97
[2024-12-05 06:00] VITALS: BP 102/63; PULSE 80; RESP 16; TEMP 36.6; O2SAT 96
[2024-12-05] MEDS: insulin glargine 100 units/1 mL 30 UNIT SUBCUT (09:01)
[2024-12-05 14:00] VITALS: BP 103/69; PULSE 93; RESP 16; TEMP 37.2; O2SAT 99
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
[2024-12-05 19:29] VITALS: BP 117/78; PULSE 83; RESP 16; TEMP 36.7; O2SAT 97
[2024-12-06 05:54] VITALS: BP 98/63; PULSE 101; RESP 16; TEMP 36.7; O2SAT 95
[2024-12-06] MEDS: insulin glargine 100 units/1 mL 30 UNIT SUBCUT (08:06)
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
[2024-12-06 14:00] VITALS: BP 116/73; PULSE 89; RESP 18; TEMP 36.6
[2024-12-06 19:33] VITALS: BP 109/73; PULSE 81; RESP 18; TEMP 36.6; O2SAT 96
[2024-12-07 06:00] VITALS: BP 109/66; PULSE 76; RESP 16; TEMP 36.8; O2SAT 95
[2024-12-07] MEDS: insulin glargine 100 units/1 mL 30 UNIT SUBCUT (08:09)
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
[2024-12-07 13:57] VITALS: BP 103/61; PULSE 88; RESP 14; TEMP 36.7; O2SAT 96
[2024-12-07 20:35] VITALS: BP 96/60; PULSE 112; RESP 18; TEMP 36.4; O2SAT 96
[2024-12-08 06:00] VITALS: BP 107/65; PULSE 87; RESP 17; TEMP 36.4; O2SAT 97; BMI 19.4
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
[2024-12-08] MEDS: insulin glargine 100 units/1 mL 30 UNIT SUBCUT (08:33)
[2024-12-08 14:00] VITALS: BP 108/63; PULSE 73; RESP 17; TEMP 36.5; O2SAT 96
[2024-12-08 19:33] VITALS: BP 105/67; PULSE 65; RESP 17; TEMP 36.5; O2SAT 98
[2024-12-09 06:00] VITALS: BP 102/66; PULSE 91; RESP 19; TEMP 36.4; O2SAT 97
[2024-12-09] MEDS: insulin glargine 100 units/1 mL 30 UNIT SUBCUT (08:06)
[2024-12-09 13:42] VITALS: BP 94/55; PULSE 92; RESP 16; TEMP 36.8; O2SAT 100
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
[2024-12-09 19:21] VITALS: BP 110/61; PULSE 84; RESP 18; TEMP 36.7; O2SAT 94
[2024-12-10 06:00] VITALS: BP 98/65; PULSE 80; RESP 16; TEMP 36.5; O2SAT 95
[2024-12-10] MEDS: insulin glargine 100 units/1 mL 30 UNIT SUBCUT (07:32)
[2024-12-10 14:00] VITALS: BP 117/81; PULSE 102; RESP 16; TEMP 36.6; O2SAT 95
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
[2024-12-10 19:44] VITALS: BP 126/76; PULSE 97; RESP 18; TEMP 36.9; O2SAT 97
[2024-12-11 06:00] VITALS: BP 94/67; PULSE 84; RESP 18; O2SAT 96
[2024-12-11] MEDS: insulin glargine 100 units/1 mL 30 UNIT SUBCUT (08:23)
[2024-12-11 14:00] VITALS: BP 99/68; PULSE 97; RESP 16; TEMP 36.7; O2SAT 97
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
[2024-12-11 20:15] VITALS: BP 110/69; PULSE 79; RESP 18; TEMP 36.7; O2SAT 95
[2024-12-12 06:00] VITALS: BP 90/57; PULSE 84; RESP 16; O2SAT 95
[2024-12-12] MEDS: insulin glargine 100 units/1 mL 30 UNIT SUBCUT (07:54)
[2024-12-12 13:55] VITALS: BP 108/67; PULSE 87; RESP 15; TEMP 36.6; O2SAT 95
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
[2024-12-12 20:07] VITALS: BP 110/75; PULSE 89; RESP 18; TEMP 36.6
[2024-12-13 06:00] VITALS: BP 102/65; PULSE 78; RESP 16; TEMP 36.6; O2SAT 97
[2024-12-13] MEDS: insulin glargine 100 units/1 mL 30 UNIT SUBCUT (07:34)
[2024-12-13 14:00] VITALS: BP 116/64; PULSE 109; RESP 16; TEMP 36.6; O2SAT 94
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
[2024-12-13 20:23] VITALS: BP 103/68; PULSE 98; RESP 18; TEMP 36.7; O2SAT 96
[2024-12-14 06:00] VITALS: BP 99/66; PULSE 86; RESP 19; TEMP 36.6; O2SAT 97
[2024-12-14] MEDS: insulin glargine 100 units/1 mL 30 UNIT SUBCUT (07:48)
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
[2024-12-14 14:00] VITALS: BP 97/65; PULSE 91; RESP 16; TEMP 36.8; O2SAT 98
[2024-12-14 20:29] VITALS: BP 101/64; PULSE 95; RESP 17; TEMP 36.8; O2SAT 97
[2024-12-15 05:30] VITALS: BMI 19.4
[2024-12-15 06:00] VITALS: BP 101/60; PULSE 92; RESP 18; TEMP 36.8; O2SAT 97
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
[2024-12-15] MEDS: insulin glargine 100 units/1 mL 30 UNIT SUBCUT (07:35)
[2024-12-15 14:00] VITALS: BP 134/74; PULSE 88; RESP 16; TEMP 37; O2SAT 98
[2024-12-15 19:08] VITALS: BP 113/70; PULSE 98; RESP 16; TEMP 36.6; O2SAT 98
[2024-12-16 06:00] VITALS: BP 89/59; PULSE 79; RESP 18; TEMP 36.4; O2SAT 97
[2024-12-16] MEDS: insulin glargine 100 units/1 mL 30 UNIT SUBCUT (08:23)
[2024-12-16 10:22] VITALS: BP 89/65; PULSE 79; RESP 18; TEMP 36.4; O2SAT 97
[2024-12-16 14:00] VITALS: BP 126/79; PULSE 84; RESP 16; TEMP 36.6; O2SAT 97
== END 2024-12-16 17:18 | disposition home or self-care (01) | DRG 884 ==
LOC: ER 11-19 01:50 → NP 11-19 02:08
PROVIDERS: Family Medicine; Physician Assistant; Admitting Provider Psychiatry & Neurology Psychiatry; Emergency Provider Student in an Organized Health Care Education/Training Program; PCP Electrodiagnostic Medicine; Visit Provider Psychiatry & Neurology Psychiatry
DX: F84.0 Autistic disorder (principal); F65.4 Pedophilia; F79 Unspecified intellectual disabilities; F32.A Depression, unspecified; Z81.8 Family history of other mental and behavioral disorders; F90.9 Attention-deficit hyperactivity disorder, unspecified type; E10.65 Type 1 diabetes mellitus with hyperglycemia; Z79.4 Long term (current) use of insulin; F42.9 Obsessive-compulsive disorder, unspecified; F63.9 Impulse disorder, unspecified
CPT/HCPCS: 36415; 36416; 80053; 80306; 80307; 81001; 82009; 82962; 83036; 84443; 85025; 93005; 96372; 97150; 97165; 99285; J1815; J9999

== ENCOUNTER 2025-02-07 08:20 | Outpatient (CLI) | payer OTHER, MEDICAID, SELFPAY ==
[2025-02-07 09:31] LABS: Alanine Aminotransferase 15 U/L (0-41); Albumin Level 4.7 g/dL (3.5-5.2); Alkaline Phosphatase 95 U/L (40-130); Anion Gap 13.2 (5-19); Aspartate Amino Transferase 20 U/L (0-40); Blood Urea Nitrogen 21 mg/dL (6-20); Calcium 9.4 mg/dL (8.5-10.5); Carbon Dioxide 30 mmol/L (22-29); Chloride 97 mmol/L (98-107); Cholesterol 205 mg/dL (0-200); Globulin 3.0 g/dL (1.3-4.6); Glucose 243 mg/dL (65-115); HDL Cholesterol 54 mg/dL (60-100); Osmolality Calculated 293 mOsm/kg (285-295); Potassium 4.2 mmol/L (3.5-5.1); Sodium 136 mmol/L (136-145); Total Protein 7.7 g/dL (6.6-8.7); Triglycerides 92 mg/dL (0-150)
[2025-02-07 09:33] LABS: Creatinine Urine, Random 190 mg/dL (39-259); Microalbum Creatinine Ratio Ur 16 mg/dL (0-20)
[2025-02-07 09:33] LABS: Estmated Average Glucose 200; Hemoglobin A1C 8.6 % (4.0-6.0)
== END 2025-02-07 08:21 | disposition home or self-care (01) ==
PROVIDERS: PCP Electrodiagnostic Medicine; Visit Provider Internal Medicine
DX: E10.9 Type 1 diabetes mellitus without complications (principal)
CPT/HCPCS: 36415; 80053; 80061; 82044; 83036

== ENCOUNTER 2025-04-04 08:29 | Outpatient (CLI) | payer MEDICAID, SELFPAY ==
[2025-04-04 09:31] LABS: Alanine Aminotransferase 27 U/L (0-41); Albumin Level 4.7 g/dL (3.5-5.2); Alkaline Phosphatase 90 U/L (40-130); Anion Gap 16.2 (5-19); Aspartate Amino Transferase 31 U/L (0-40); Blood Urea Nitrogen 13 mg/dL (6-20); Calcium 9.2 mg/dL (8.5-10.5); Carbon Dioxide 27 mmol/L (22-29); Chloride 100 mmol/L (98-107); Globulin 2.7 g/dL (1.3-4.6); Glucose 145 mg/dL (65-115); Osmolality Calculated 291 mOsm/kg (285-295); Potassium 4.2 mmol/L (3.5-5.1); Sodium 139 mmol/L (136-145); Total Protein 7.4 g/dL (6.6-8.7)
== END 2025-04-04 08:30 | disposition home or self-care (01) ==
PROVIDERS: PCP Electrodiagnostic Medicine; Visit Provider Internal Medicine
DX: E10.9 Type 1 diabetes mellitus without complications (principal)
CPT/HCPCS: 36415; 80053; 84681; 86337; 86341

== ENCOUNTER → 2025-05-14 14:48 | Outpatient (BNVA) | payer MEDICAID, SELFPAY | PROVIDERS: PCP Electrodiagnostic Medicine; Visit Provider Internal Medicine Endocrinology, Diabetes & Metabolism | DX: E10.9 Type 1 diabetes mellitus without complications (principal); Z86.59 Personal history of other mental and behavioral disorders; F63.9 Impulse disorder, unspecified; F84.0 Autistic disorder | CPT/HCPCS: 99214 ==